=== PATIENT | female | born 1990 | race Caucasian/White ===

== ENCOUNTER 2016-12-19 07:54 | Day surgery (SDC) | payer BC ==
[~2016-12-19 07:54] MED LIST: FENTANYL CITRATE 50 MCG/ML SOL ONE; ROCURONIUM BROMIDE 10 MG/ML SOL IV ONE; SUCCINYLCHOLINE CHLORIDE 20 MG/ML SOL IV ONE
[2016-12-19] MEDS ORDERED: BUPIVACAINE LIPOSOME 20 ML SUS ONE (08:36)
[2016-12-19] MEDS ORDERED: FENTANYL CITRATE 50 MCG/ML SOL ONE (08:57)
[2016-12-19 10:01] VITALS: RESP 18
[2016-12-19 10:25] VITALS: BP 131/88; PULSE 76; TEMP 97.4; O2SAT 96
== END 2016-12-19 10:20 | disposition home or self-care (01) ==
LOC: SURG 07:54
PROVIDERS: ATTEND Surgery
DX: K62.5 Hemorrhage of anus and rectum (principal); K62.89 Other specified diseases of anus and rectum; K63.5 Polyp of colon
CPT/HCPCS: 45385; 99001; J0330; J2001; J3010 ×2; J2704